=== PATIENT | female | born 1950 | race Caucasian/White ===

== ENCOUNTER → 2016-06-18 | Outpatient (CLI) | payer BC ==
[~2016-06-18] MED LIST: CLB/200 PO; HCTZ/LOSARTAN PO; OMEG10007 PO; OPTIRAY 320 IV PRN; TPRSR/50 PO
--- NOTE | 2016-06-18 09:11 | DIAGNOSTIC IMAGING REPORT ---
CT OF THE ABDOMEN WITH AND WITHOUT CONTRAST RENAL MASS PROTOCOL CT DOSE: 1044.71 mGy.cm CLINICAL HISTORY: Left renal mass. TECHNIQUE: Unenhanced, nephrographic and delayed phase imaging of the abdomen was performed. Injection of 93 cc Optiray 320 IV was uneventful. COMPARISON STUDY: CT of the abdomen January 11, 2014 and March 13, 2015. FINDINGS: Visualized portions of the lower chest demonstrate mild cardiomegaly. There is a small hiatal hernia. The liver, spleen, adrenal glands and pancreas are normal. The caliber and wall thickness of visualized small and large bowel are normal. There is a splenule. There is no abdominal lymphadenopathy. There is no hydronephrosis. No filling defects are identified within the collecting systems on the delayed images. Two lesions arising from the upper pole of the left kidney are noted. These measure up to 2 cm. These measure slightly greater than water attenuation but demonstrate no enhancement. These are benign. Note is again made of the fat-containing 2.4 x 2 cm lesion within the medial cortex of the mid to upper pole the left kidney. This is unchanged exam of January 11, 2014. There are multiple subcentimeter renal lesions which are too small to characterize. No suspicious skeletal lesions are identified. IMPRESSION: 1. 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 2. Several renal cysts and multiple subcentimeter renal lesions which are too small to characterize. Electronically signed by: Damon Cummins M.D. 06/18/2016 9:09 AM Dictated Date/Time: 06/18/2016 8:56 AM
== END | disposition home or self-care (01) ==
LOC: C.CTS 08:29
PROVIDERS: ATTEND Urology
DX: N28.89 Other specified disorders of kidney and ureter (principal)

== ENCOUNTER → 2017-08-03 | Outpatient (CLI) | payer OTHER ==
[~2017-08-03] MED LIST changes: -OPTIRAY 320 IV PRN
--- NOTE | 2017-08-03 09:22 | DIAGNOSTIC IMAGING REPORT ---
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 Areas of twinkle artifact are noted within the superior pole right kidney correlating with 2 mm echogenicity is compatible with previously seen nonobstructing calculi. No hydronephrosis. No suspicious mass lesions are seen on the right. Cyst of the superior pole right kidney measures up to 1.2 cm. Left kidney measures 12.6 cm in length and demonstrates no hydronephrosis. There are multiple left-sided renal cysts redemonstrated. There is an echogenic lesion of the left kidney measuring up to 2.3 cm within the interpolar region correlating with previously described angiomyolipoma, unchanged. No suspicious mass lesions identified on the left. The bladder is unremarkable with bilateral ureteral jets documented. IMPRESSION: 1. Unchanged size of the angiomyolipoma within the interpolar left kidney, 2.3 cm. 2. 2 mm nonobstructing calculus of the superior pole right kidney. No hydronephrosis. 3. Left greater than right bilateral renal cysts. The above report was generated using voice recognition software. It may contain grammatical, syntax or spelling errors. Electronically signed by: Trev Spence M.D. 08/03/2017 9:21 AM Dictated Date/Time: 08/03/2017 9:16 AM
== END | disposition home or self-care (01) ==
LOC: C.ULTR 08:09
PROVIDERS: ATTEND Urology
DX: N28.89 Other specified disorders of kidney and ureter (principal); N20.0 Calculus of kidney; N28.1 Cyst of kidney, acquired